=== PATIENT | female | born 1975 | race Caucasian/White ===

== ENCOUNTER → 2019-05-15 | Outpatient (CLI) | payer MEDICARE, MEDICAID ==
[~2019-05-15] MED LIST: ARIP2TAB3 PO; CARB200T PO; DULO60CA6 PO; SULF1TAB35 PO
--- NOTE | 2019-05-15 15:28 | Diagnostic Imaging Report ---
INDICATION: Numbness in the left femur. COMPARISON: None. FINDINGS: Four views of the left femur were obtained and show no fractures, dislocations, or other acute bony abnormalities. Joint spaces are well maintained throughout. The soft tissues appear unremarkable. No radiopaque foreign bodies are identified. IMPRESSION: Unremarkable radiographic exam of the left femur. Dictated by: Dictated on workstation # [id number]
--- NOTE | 2019-05-15 16:21 | Diagnostic Imaging Report ---
INDICATION: Pain. COMPARISON: None available. TECHNIQUE: Three radiographs of the lumbar spine dated May 15, 2019. FINDINGS: Partial sacralization of the L5 vertebral body is suggested based upon the radiographs of the lumbar spine. Alignment of the lumbar spine is well-maintained. Vertebral body heights are well-maintained. Mild disc space height loss at L4-L5. No severe disc space height loss. Minimal anterior osteophytes in the lower lumbar spine. No acute fracture or dislocation. No destructive osseous process. Scattered facet joint degenerative changes, low-grade in severity. The bilateral sacroiliac joints are intact. Surgical clips are present within the right upper quadrant of the abdomen. IMPRESSION: No acute osseous abnormality with minimal degenerative changes. Partial sacralization of the L5 vertebral body. Dictated by: Dictated on workstation # [id number]
== END ==
LOC: RAD 14:22
PROVIDERS: ATTEND Pediatrics
DX: M54.5 Low back pain (principal); M79.605 Pain in left leg; R20.0 Anesthesia of skin
CPT/HCPCS: 72100; 73552

== ENCOUNTER 2019-05-27 16:04 | Emergency (ER) | payer MEDICARE, MEDICAID ==
[~2019-05-27] VITALS: Ht 167 cm; Wt 83.8 kg
--- NOTE | 2019-05-27 16:43 | Diagnostic Imaging Report ---
Patient History: Chest pain. Palpitations for 3 days.. Technique: Single frontal view of the chest Comparison: 10/10/2015 FINDINGS: The lung volumes are normal. No focal consolidation is seen. No large pleural effusion or pneumothorax is seen. The cardiomediastinal silhouette is normal in size and contour. No acute osseous abnormality is seen. IMPRESSION: 1. No acute pleuroparenchymal process. Dictated by: Dictated on workstation # [id number]
[2019-05-27 17:22] LABS: BUN/CREATININE RATIO 16; CALCIUM 9.5 MG/DL (8.5-10.1); CARBON DIOXIDE 24 MMOL/L (21-32); CHLORIDE 99 MMOL/L (98-107); CREATININE SERUM 0.64 MG/DL (0.60-1.30); GFR ESTIMATED > 60; GLUCOSE 200 MG/DL (70-105); POTASSIUM 3.8 MMOL/L (3.6-5.0); SODIUM 138 MMOL/L (135-145)
[2019-05-27 17:23] LABS: ALANINE AMINOTRANSFERASE 71 U/L (0-55); ALBUMIN 4.5 GM/DL (3.2-4.5); ALKALINE PHOSPHATASE 128 U/L (40-136); BILIRUBIN,TOTAL 0.4 MG/DL (0.1-1.0); HEMATOCRIT 41 % (35-52); HEMOGLOBIN 13.7 G/DL (11.5-16.0); MEAN CORPUSCULAR HEMOGLOBIN 31 PG (25-34); MEAN CORPUSCULAR VOLUME 91 FL (80-99); TOTAL PROTEIN 7.5 GM/DL (6.4-8.2)
[2019-05-27 17:24] LABS: BASOPHILS % (AUTO) 0 % (0-10); EOSINOPHILS # (AUTO) 0.1 10^3/uL (0.0-0.3); EOSINOPHILS % (AUTO) 1 % (0-10); LYMPHOCYTES # (AUTO) 2.4 X 10^3 (1.0-4.0); LYMPHOCYTES % (AUTO) 34 % (12-44); MEAN CORPUSCULAR HGB CONC 34 G/DL (32-36); MEAN PLATELET VOLUME 10.7 FL (7.4-10.4); MONOCYTES # (AUTO) 0.4 X 10^3 (0.0-1.0); MONOCYTES % (AUTO) 5 % (0-12); NEUTROPHILS # (AUTO) 4.2 X 10^3 (1.8-7.8); NEUTROPHILS % (AUTO) 60 % (42-75); PLATELET COUNT 259 10^3/uL (130-400); RED CELL DISTRIBUTION WIDTH 12.5 % (10.0-14.5)
--- NOTE | 2019-05-27 17:27 | ED Cardiac General ---
History of Present Illness General Chief Complaint: Chest Pain Stated Complaint: CHEST PAIN Nursing Triage Note: Patient states has had intermittent chest pain x 4 days and palpitations for one week. Was nauseous yesterday and has been feeling sob and feels like she has to cough due to not getting enough breath. States she has been having anxiety as well. Has been out of cymbalta for 3 days and has been unable to have it refilled. Also recently started taking metformin and thinks one of her medicines is making her feel bad. Blood sugars normally run 200-300. Has history of diabetes, hypertension, and is a 1ppd smoker. Source: patient Exam Limitations: no limitations History of Present Illness Date Seen by Provider: May 27, 2019 Time Seen by Provider: 17:22 Initial Comments The patient is a 43-year-old white female who presents with chief complaint of intermittent chest pain and palpitations. This is been noted over the past week or thereabouts. This morning she had an episode of palpitations and her mother prevailed upon her to come to the emergency room. She has recently been diagnosed as having diabetes. She has been dieting and has lost 19 pounds. She was also started on metformin and was concerned that this might be causing a problem. 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 She smokes about one pack of cigarettes per day. Her mother has a history of atrial fibrillation. She also smoked and is being treated for COPD. Timing/Duration: 1 week Severity: mild, moderate Location: central Activities at Onset: none Prior CP/Workup: no prior chest pain, no prior cardiac workup Allergies and Home Medications Allergies Coded Allergies: podofilox (Verified Allergy, Unknown, 10/10/15) Home Medications Aripiprazole 2 Mg Tablet, 5 MG PO DAILY, (Reported) Carbamazepine 200 Mg Tablet, 300 MG PO TID, (Reported) Duloxetine HCl 60 Mg Capsule.dr, 60 MG PO BID, (Reported) Sulfamethoxazole/Trimethoprim 1 Each Tablet, 1 EACH PO BID Prescribed by: MATT DE LA ROSA on 10/10/151940 Patient Home Medication List Home Medication List Reviewed: Yes Review of Systems Review of Systems Constitutional: see HPI EENTM: No Symptoms Reported Respiratory: No Symptoms Reported Cardiovascular: See HPI, Palpitations Gastrointestinal: No Symptoms Reported Genitourinary: No Symptoms Reported Musculoskeletal: no symptoms reported Skin: no symptoms reported Psychiatric/Neurological: No Symptoms Reported Endocrine: See HPI Hematologic/Lymphatic: No Symptoms Reported Past Jzqhmno-Wufmoo-Dsotpq Hx Patient Social History Alcohol Use: Past History Recreational Drug Use: No Smoking Status: Current Everyday Smoker 2nd Hand Smoke Exposure: Yes Recent Foreign Travel: No Contact w/Someone Who Travel: No Recent Infectious Disease Expo: No Physical Abuse: No Sexual Abuse: No Mistreated: No Fear: No Immunizations Up To Date Tetanus Booster (TDap): Unknown Seasonal Allergies Seasonal Allergies: No Past Medical History Surgeries: Yes Abdominal, Breast, Gallbladder, Hysterectomy Respiratory: No Cardiac: Yes Hypertension, Irregular Heartbeat, Palpitations Neurological: No Reproductive Disorders: Yes Female Reproductive Disorders: Endometriosis Genitourinary: No Gastrointestinal: No Musculoskeletal: No Endocrine: Yes Hypothyroidsim, Diabetes, Non-Insulin dep Cancer: No Psychosocial: Yes Anxiety, Bipolar Integumentary: No Blood Disorders: No Physical Exam Vital Signs Vital Signs - First Documented 05/27/19 16:06 Temp 37.0 Pulse 100 Resp 15 B/P (MAP) 140/83 (102) Pulse Ox 98 Capillary Refill : Less Than 3 Seconds Height, Weight, BMI Height: 5'6" Weight: 170lbs. oz. 77.512015ks; 30.00 BMI Method: General Appearance: No Apparent Distress, WD/WN, Other (alert and engaging) HEENT: Normal ENT Inspection Neck: Full Range of Motion, Normal Inspection, Non Tender Respiratory: Chest Non Tender, Lungs Clear, Normal Breath Sounds, No Accessory Muscle Use, No Respiratory Distress Cardiovascular: Regular Rate, Rhythm, No Edema, No Gallop, No JVD, No Murmur, Normal Peripheral Pulses Gastrointestinal: Normal Bowel Sounds, No Organomegaly, No Pulsatile Mass, Non Tender Extremity: Normal Capillary Refill, Normal Inspection, Normal Range of Motion, Non Tender, No Calf Tenderness, No Pedal Edema Neurologic/Psychiatric: Alert, Oriented x3, No Motor/Sensory Deficits, Normal Mood/Affect Skin: Normal Color, Warm/Dry Lymphatic: No Adenopathy Progress/Results/Core Measures Results/Orders Lab Results Laboratory Tests Test 05/27/19 16:30 Range/Units White Blood Count 7.0 4.3-11.0 10^3/uL Red Blood Count 4.48 4.35-5.85 10^6/uL Hemoglobin 13.7 11.5-16.0 G/DL Hematocrit 41 35-52 % Mean Corpuscular Volume 91 80-99 FL Mean Corpuscular Hemoglobin 31 25-34 PG Mean Corpuscular Hemoglobin Concent 34 32-36 G/DL Red Cell Distribution Width 12.5 10.0-14.5 % Platelet Count 259 130-400 10^3/uL Mean Platelet Volume 10.7 H 7.4-10.4 FL Neutrophils (%) (Auto) 60 42-75 % Lymphocytes (%) (Auto) 34 12-44 % Monocytes (%) (Auto) 5 0-12 % Eosinophils (%) (Auto) 1 0-10 % Basophils (%) (Auto) 0 0-10 % Neutrophils # (Auto) 4.2 1.8-7.8 X 10^3 Lymphocytes # (Auto) 2.4 1.0-4.0 X 10^3 Monocytes # (Auto) 0.4 0.0-1.0 X 10^3 Eosinophils # (Auto) 0.1 0.0-0.3 10^3/uL Basophils # (Auto) 0.0 0.0-0.1 10^3/uL Sodium Level 138 135-145 MMOL/L Potassium Level 3.8 3.6-5.0 MMOL/L Chloride Level 99 98-107 MMOL/L Carbon Dioxide Level 24 21-32 MMOL/L Anion Gap 15 H 5-14 MMOL/L Blood Urea Nitrogen 10 7-18 MG/DL Creatinine 0.64 0.60-1.30 MG/DL Estimat Glomerular Filtration Rate > 60 BUN/Creatinine Ratio 16 Glucose Level 200 H 70-105 MG/DL Calcium Level 9.5 8.5-10.1 MG/DL Corrected Calcium 9.1 8.5-10.1 MG/DL Total Bilirubin 0.4 0.1-1.0 MG/DL Aspartate Amino Transf (AST/SGOT) 65 H 5-34 U/L Alanine Aminotransferase (ALT/SGPT) 71 H 0-55 U/L Alkaline Phosphatase 128 40-136 U/L Troponin I < 0.30 <0.30 NG/ML Total Protein 7.5 6.4-8.2 GM/DL Albumin 4.5 3.2-4.5 GM/DL My Orders Orders - BARBARA GARCIA MD Chest 1 View Ap/Pa Only (05/27/19 16:10) Ekg Tracing (05/27/19 16:10) Cbc With Automated Diff (05/27/19 16:10) Comprehensive Metabolic Panel (05/27/19 16:10) Troponin I Fs (05/27/19 16:54) Vital Signs/I&O 05/27/19 16:06 Temp 37.0 Pulse 100 Resp 15 B/P (MAP) 140/83 (102) Pulse Ox 98 Blood Pressure Mean: 102 Departure Communication (Admissions) Troponin and EKG were negative. By history is given by the patient this suggests paroxysmal atrial fibrillation or intermittent PVCs. They are advised if this is to continue that they should make a cardiology appointment for consideration of a longer term cardiac monitoring. It is also noted that her ALT and AST are approximately double normal. She states that she had a normal hepatitis C study in 2017. This would raise the specter of RODRÍGUEZ. She is advised to follow this along during her weight loss program. Impression Primary Impression: palpitations Disposition: HOME, SELF-CARE Condition: Stable/Unchanged Departure-Patient Inst. Decision time for Depature: 17:40 Referrals: ANNEL BLEVINS MD (PCP/Family) Primary Care Physician Add. Discharge Instructions: All discharge instructions reviewed with patient and/or family. Voiced understanding. If continued sense of palpitations make cardiology appointment for consideration of outpatient monitoring of heartbeat BARBARA GARCIA MD May 27, 2019 17:27
[2019-05-27 17:53] VITALS: BP 130/77
== END 2019-05-27 17:55 | disposition home or self-care (01) ==
LOC: EDUNIT# 16:04 → ER FS 16:05
DX: R00.2 Palpitations (principal); E11.9 Type 2 diabetes mellitus without complications; I10 Essential (primary) hypertension; F41.9 Anxiety disorder, unspecified; E03.9 Hypothyroidism, unspecified; F31.9 Bipolar disorder, unspecified; F17.210 Nicotine dependence, cigarettes, uncomplicated; Z79.84 Long term (current) use of oral hypoglycemic drugs; Z88.8 Allergy status to other drugs, medicaments and biological substances; Z90.710 Acquired absence of both cervix and uterus; Z82.49 Family history of ischemic heart disease and other diseases of the circulatory system
CPT/HCPCS: 36415; 71045; 80053; 84484; 85025; 93005

== ENCOUNTER → 2019-06-06 | Outpatient (CLI) | payer MEDICARE, MEDICAID ==
--- NOTE | 2019-06-06 10:54 | Diagnostic Imaging Report ---
EXAMINATION: US Abdomen complete. TECHNIQUE: Multiple real-time grayscale images were obtained over the right upper quadrant in various projections. HISTORY: Elevated liver enzymes FINDINGS: No comparison available. The liver is moderately steatotic. It is also mildly enlarged. No focal lesions are seen. The portal vein is patent with hepatopedal flow. Gallbladder is surgically absent Common duct is obscured by bowel gas. There is no biliary ductal dilation. The visualized portions of the pancreas are normal. The right kidney is normal without hydronephrosis. The left kidney is normal without hydronephrosis. The aorta and inferior vena cava are normal. The spleen is normal. No ascites is seen. IMPRESSION: 1. Enlarged and steatotic liver. Dictated by: Dictated on workstation # [id number]
== END ==
LOC: RAD 09:24
PROVIDERS: ATTEND Pediatrics
DX: K76.0 Fatty (change of) liver, not elsewhere classified (principal); R74.8 Abnormal levels of other serum enzymes; K76.89 Other specified diseases of liver
CPT/HCPCS: 76700

== ENCOUNTER 2020-02-29 11:17 | Emergency (ER) | payer MEDICARE, MEDICAID ==
[~2020-02-29] VITALS: Ht 170.2 cm; Wt 84.4 kg
--- NOTE | 2020-02-29 11:21 | ED Integumentary General ---
General Chief Complaint: Skin/Wound Problems Stated Complaint: LT FOOT INFECTION Source: patient History of Present Illness Date Seen by Provider: Feb 29, 2020 Time Seen by Provider: 11:21 Initial Comments 44-year-old female presents with a small abscess on her left great toe. Patient reports that about a week ago she dropped a cold trailer on it. Her primary care provider put her in a walking boot because she is diabetic and doesn't want walking on it. She developed a small superficial skin infection with a small abscess. She is currently already on Levaquin and has 3 days left. She denies any fevers chills or other systemic complaints. Patient had a previous x-ray that shows is not broken. Allergies and Home Medications Allergies Coded Allergies: podofilox (Verified Allergy, Unknown, 10/10/15) Home Medications Aripiprazole 2 Mg Tablet, 5 MG PO DAILY, (Reported) Carbamazepine 200 Mg Tablet, 300 MG PO TID, (Reported) Duloxetine HCl 60 Mg Capsule.dr, 60 MG PO BID, (Reported) Sulfamethoxazole/Trimethoprim 1 Each Tablet, 1 EACH PO BID Prescribed by: MATT DE LA ROSA on 10/10/151940 Patient Home Medication List Home Medication List Reviewed: Yes Review of Systems Review of Systems Constitutional: No chills, No fever EENTM: no symptoms reported Respiratory: no symptoms reported Cardiovascular: no symptoms reported Gastrointestinal: no symptoms reported Skin: see HPI Psychiatric/Neurological: No Symptoms Reported Endocrine: No Symptoms Reported Past Uuxvday-Lusmmt-Ufdzpr Hx Past Med/Social Hx: Reviewed Nursing Past Med/Soc Hx Patient Social History 2nd Hand Smoke Exposure: Yes Recent Foreign Travel: No Contact w/Someone Who Travel: No Immunizations Up To Date Tetanus Booster (TDap): Unknown Seasonal Allergies Seasonal Allergies: No Past Medical History Surgeries: Yes Abdominal, Breast, Gallbladder, Hysterectomy Respiratory: No Cardiac: Yes Hypertension, Irregular Heartbeat, Palpitations Neurological: No Reproductive Disorders: Yes Female Reproductive Disorders: Endometriosis Genitourinary: No Gastrointestinal: No Musculoskeletal: No Endocrine: Yes Hypothyroidsim, Diabetes, Non-Insulin dep Cancer: No Psychosocial: Yes Anxiety, Bipolar Integumentary: No Blood Disorders: No Physical Exam Vital Signs Capillary Refill : General Appearance: WD/WN, no apparent distress Cardiovascular: normal peripheral pulses, regular rate, rhythm Respiratory: chest non-tender, lungs clear Gastrointestinal: soft Extremities: swelling (left great toe ) Skin: other (small perionchyl abscess left great toe ) Procedures/Interventions I&D : Blade Size: 11 Progress Patient's toe clean with an alcohol swab prep and water. An 11 blade was used put in a very small incision. Abscess completely drain with no difficulty. Patient tolerated well per Departure Impression Primary Impression: Perionychia of toe Qualified Codes: L03.032 - Cellulitis of left toe Disposition: HOME, SELF-CARE Condition: Stable Departure-Patient Inst. Referrals: ANNEL BLEVINS MD (PCP/Family) Primary Care Physician Patient Instructions: Paronychia (DC), Abscess Incision and Drainage (DC), Methicillin-Resistant Staphylococcus aureus (MRSA) Add. Discharge Instructions: Follow-up with your primary care provider next week for recheck All discharge instructions reviewed with patient and/or family. Voiced understanding. Scripts Ibuprofen (Ibuprofen) 800 Mg Tablet 800 MG PO Q8H PRN for PAIN, #30 TAB 0 Refills Prov: DAVID SANTACRUZ DO 02/29/20 DAVID SANTACRUZ DO Feb 29, 2020 11:21
[2020-02-29] MEDS ORDERED: IBUP-1780 PO (11:36)
[2020-02-29 11:45] VITALS: BP 158/96
== END 2020-02-29 11:45 | disposition home or self-care (01) ==
LOC: EDUNIT# 11:17 → ER FS 11:18
DX: L03.032 Cellulitis of left toe (principal); F41.9 Anxiety disorder, unspecified; F31.9 Bipolar disorder, unspecified; Z88.8 Allergy status to other drugs, medicaments and biological substances
CPT/HCPCS: 10060; 87070; 87077; 87205

== ENCOUNTER 2020-03-03 12:18 | Emergency (ER) | payer MEDICARE, MEDICAID ==
[~2020-03-03 12:18] MED LIST changes: +IBUP-1780 PO
[2020-03-03] MEDS ORDERED: PROCHLORPERAZINE 10 MG TAB (COMPAZINE) PO ONE (13:00)
[2020-03-03] MEDS ORDERED: oxyCODONE/APAP 5/325MG (PERCOCET 5) TABLET PO ONE (13:00)
--- NOTE | 2020-03-03 13:33 | Diagnostic Imaging Report ---
INDICATION: Cough and fever. Portable chest 1:18 PM FINDINGS: Heart size and pulmonary vascularity are normal. Lungs are clear. There are no effusions or pneumothoraces. IMPRESSION: Negative chest. Dictated by: Dictated on workstation # [id number]
--- NOTE | 2020-03-03 13:43 | ED General ---
General Chief Complaint: Fever-Adult/Adol Stated Complaint: FEVER Nursing Triage Note: Tuesday morning started having fevers and headaches. Temp has been low 100's. Is also having nausea and fatigue. Had a wound on left foot lanced on Tuesday. has been on antibiotics and states toe is much better. Denies any sick contacts or changes in smell or taste. Nursing Sepsis Screen: No Definite Risk Source of Information: Patient History of Present Illness Date Seen by Provider: Mar 03, 2020 Time Seen by Provider: 12:30 Initial Comments Patient is a 44-year-old female who presents with multiple medical complaints. Patient was evaluated 3 days ago had an I&D of right great toe. Patient has completed a course of antibiotics but reports intermittent fever for the initial 2 days but no fever for the past 24 hours. She reports headache dizziness and nausea. She states her blood sugars been elevated in the low 300 range. Patient is a ypl-nxvkdrs-awrtboecr diabetic. Typically blood sugars are less than 200. Patient denies neck pain, stiffness, rash, chest pain. Reports occasional cough and nausea. No known COVID exposure. Timing/Duration: 1-3 Hours Severity: Mild Modifying Factors: improves with Other Associated Systoms: Other Allergies and Home Medications Allergies Coded Allergies: podofilox (Verified Allergy, Unknown, 10/10/15) Home Medications Aripiprazole 2 Mg Tablet, 5 MG PO DAILY, (Reported) Carbamazepine 200 Mg Tablet, 300 MG PO TID, (Reported) Duloxetine HCl 60 Mg Capsule.dr, 60 MG PO BID, (Reported) Ibuprofen 800 Mg Tablet, 800 MG PO Q8H PRN for PAIN Prescribed by: DAVID SANTACRUZ on 02/29/20 1136 Sulfamethoxazole/Trimethoprim 1 Each Tablet, 1 EACH PO BID Prescribed by: MATT DE LA ROSA on 10/10/15 194 Patient Home Medication List Home Medication List Reviewed: Yes Review of Systems Review of Systems Constitutional: see HPI EENTM: see HPI Respiratory: see HPI Cardiovascular: see HPI Gastrointestinal: see HPI Genitourinary: see HPI : No Musculoskeletal: see HPI Skin: see HPI Psychiatric/Neurological: See HPI Hematologic/Lymphatic: See HPI Past Ooumzki-Yvftdx-Xoufrd Hx Past Med/Social Hx: Reviewed Nursing Past Med/Soc Hx Patient Social History Alcohol Use: Denies Use Recreational Drug Use: No Smoking Status: Current Everyday Smoker Type Used: Cigarettes 2nd Hand Smoke Exposure: Yes Recent Foreign Travel: No Contact w/Someone Who Travel: No Recent Infectious Disease Expo: No Recent Hopitalizations: No Immunizations Up To Date Tetanus Booster (TDap): Unknown Seasonal Allergies Seasonal Allergies: No Past Medical History Surgeries: Yes Abdominal, Breast, Gallbladder, Hysterectomy Respiratory: No Cardiac: Yes Hypertension, Irregular Heartbeat, Palpitations Neurological: No Reproductive Disorders: Yes Female Reproductive Disorders: Endometriosis Genitourinary: No Gastrointestinal: No Musculoskeletal: No Endocrine: Yes Hypothyroidsim, Diabetes, Non-Insulin dep HEENT: No Cancer: No Psychosocial: Yes Anxiety, Bipolar Integumentary: No Blood Disorders: No Physical Exam Vital Signs Vital Signs - First Documented 03/03/20 12:45 Temp 36.5 Pulse 88 Resp 16 B/P (MAP) 126/85 (99) Pulse Ox 98 Capillary Refill : Less Than 3 Seconds Height, Weight, BMI Height: 5'6" Weight: 170lbs. oz. [id number]; 29.00 BMI Method: General Appearance: No Apparent Distress, Anxious Eyes: Bilateral Eye Normal Inspection, Bilateral Eye PERRL, Bilateral Eye EOMI HEENT: PERRL/EOMI, Normal ENT Inspection, Pharynx Normal Neck: Full Range of Motion, Non Tender, Supple Respiratory: Chest Non Tender, Lungs Clear Cardiovascular: Regular Rate, Rhythm Gastrointestinal: Non Tender, Soft Back: Normal Inspection, No CVA Tenderness Extremity: Normal Capillary Refill, Normal Range of Motion, Non Tender, No Calf Tenderness Neurologic/Psychiatric: Alert, Oriented x3, wrecking mechanic II-XII Norm as Tested, Other (right great toe, healing abscess/surgical wound. No cellulitis or drainage.) Skin: Normal Color, Warm/Dry Focused Exam Sepsis Stage: Ruled Out Progress/Results/Core Measures Suspected Sepsis Recent Fever Within 48 Hours: Yes Infection Criteria Present: Documented Infection New/Unexplained Altered Menta: No Sepsis Screen: No Definite Risk SIRS Temperature: Pulse: 88 Respiratory Rate: 16 Blood Pressure 126 /85 Mean: 99 Results/Orders Lab Results Laboratory Tests Test 03/03/20 13:30 03/03/20 13:35 Range/Units Glucose Level 208 H 70-105 MG/DL My Orders Orders - PITA CALDERON DO Glucose (03/03/20 12:58) Chest 1 View Ap/Pa Only (03/03/20 12:58) Ekg Tracing (03/03/20 12:58) Coronavirus Sars-Cov-2 So 2019 (03/03/20 12:58) Oxycodone/Apap 5/325mg Tablet (Percocet (03/03/20 13:00) Prochlorperazine Tablet (Compazine Table (03/03/20 13:00) Medications Given in ED Current Medications Medications Dose Ordered Sig/Lisy Route Start Time Stop Time Status Last Admin Dose Admin Oxycodone/ Acetaminophen 1 tab ONCE ONCE PO 03/03/20 13:00 03/03/20 13:02 DC 03/03/20 13:16 1 TAB Prochlorperazine Maleate 10 mg ONCE ONCE PO 03/03/20 13:00 03/03/20 13:02 DC 03/03/20 13:16 10 MG Vital Signs/I&O 03/03/20 12:45 Temp 36.5 Pulse 88 Resp 16 B/P (MAP) 126/85 (99) Pulse Ox 98 Capillary Refill : Less Than 3 Seconds Blood Pressure Mean: 99 Departure Communication (Admissions) Patient with multiple medical symptoms. Headache is not the worst patient's life. No neck pain stiffness or rash. Recent antibiotic treatment. Chest, lungs clear. Surgical wound/abscess does not appear to be likely cause of symptoms. COVID testing obtained. Recommend supportive care, PCP follow-up in cell quarantine pending results. Return precautions reviewed. Patient verbalizes und erstanding draining prior to departure. Impression Primary Impression: Headache Additional Impression: Fever Disposition: 01 HOME, SELF-CARE Condition: Stable Departure-Patient Inst. Referrals: ANNEL BLEVINS MD (PCP/Family) Primary Care Physician Patient Instructions: Fever, Adult (DC), Headache, Adult Add. Discharge Instructions: You were evaluated in the emergency department for multiple medical symptoms including headache nausea and recent fever. The cause of your symptoms cannot be determined but may be related viral illness. COVID testing has been obtained and is pending. Please go home and rest, increase fluids or the next 2-3 days. Take naproxen for pain, tramadol and Compazine as needed for additional relief. Follow up with your PCP in one for re-evaluation if symptoms persist. Return to the ED if new or worsening symptoms All discharge instructions reviewed with patient and/or family. Voiced understanding. Scripts Prochlorperazine Maleate (Compazine) 10 Mg Tablet 10 MG PO Q8H, #10 TAB Prov: PITA CALDERON DO 03/03/20 Tramadol HCl (Tramadol HCl) 50 Mg Tablet 50 MG PO Q6H PRN for PAIN for 3 Days, #10 TAB 0 Refills Prov: PITA CALDERON DO 03/03/20 PITA CALDERON DO Mar 03, 2020 13:43
[2020-03-03] MEDS ORDERED: TRM50T PO (14:54)
[2020-03-03] MEDS ORDERED: PROC-1 PO (14:54)
[2020-03-03 15:09] VITALS: BP 126/60
== END 2020-03-03 15:10 | disposition home or self-care (01) ==
LOC: EDUNIT# 12:18 → ER FS 12:20
DX: R51 Headache (principal); R50.9 Fever, unspecified; E11.9 Type 2 diabetes mellitus without complications; F41.9 Anxiety disorder, unspecified; F32.9 Major depressive disorder, single episode, unspecified; F17.210 Nicotine dependence, cigarettes, uncomplicated; Z88.8 Allergy status to other drugs, medicaments and biological substances; Z90.710 Acquired absence of both cervix and uterus
CPT/HCPCS: 36415; 71045; 82947; U0002; 87635; 93005

== ENCOUNTER → 2021-11-03 | Outpatient (CLI) | payer MEDICARE ==
[~2021-11-03] MED LIST changes: -DULO60CA6 PO; +DULO60CA7 PO; +PROC-1 PO; -SULF1TAB35 PO; +SULF1TAB38 PO; +TRM50T PO
--- NOTE | 2021-11-03 11:20 | Diagnostic Imaging Report ---
PA and lateral chest at 10:36. INDICATION: Respiratory distress COMPARISON: Date 03/03/2020. FINDINGS: The heart size is stable when compared to the prior exam. The lungs are clear. There is no evidence for failure, pneumonia or for a pleural effusion. The mediastinum is not widened. The osseous structures are intact. IMPRESSION: There is no evidence for active disease. Dictated by: Dictated on workstation # [id number]
== END ==
LOC: RAD FS 10:28
PROVIDERS: ATTEND Pediatrics
DX: R09.89 Other specified symptoms and signs involving the circulatory and respiratory systems (principal); R06.03 Acute respiratory distress
CPT/HCPCS: 71046

== ENCOUNTER 2022-08-22 22:17 | Emergency (ER) | payer MEDICARE ==
[~2022-08-22] VITALS: Ht 170.1 cm; Wt 81.8 kg
[2022-08-22] MEDS ORDERED: ORPHENADRINE 60 MG/2 ML (NORFLEX) AMP (ED ONLY) IVP STA (22:31)
[2022-08-22] MEDS ORDERED: NS IV 1000 ML 1,000 ML IV STA (22:31)
[2022-08-22] MEDS ORDERED: KETOROLAC 15 MG/ML VIAL IVP STA (22:31)
--- NOTE | 2022-08-22 22:36 | ED General ---
General Stated Complaint: MUSCLE SPASMS/TROUBLE WALKING Source of Information: Patient History of Present Illness Date Seen by Provider: Aug 22, 2022 Time Seen by Provider: 22:24 Initial Comments 46-year-old female presenting with complaints of muscle spasms in her forearms and calves. She states that this is been present all day and getting worse. She denies any trauma or injury. She has not had symptoms like this previously. She denies having vomiting or diarrhea. No fever or chills. She was trying to do hhlv-ybd-apwrvgc patches to help with her spasm and pain. She takes multiple psychiatric medicines for bipolar disease. Timing/Duration: 1 Day Severity: Severe Modifying Factors: worse with Movement Associated Systoms: No Chest Pain, No Cough, No Diaphoresis, No Fever/Chills, No Headaches, No Loss of Appetite, No Malaise, No Nausea/Vomiting, No Rash, No Seizure, No Shortness of Air, No Syncope, No Weakness Allergies and Home Medications Allergies Coded Allergies: podofilox (Verified Allergy, Unknown, 10/10/15) Patient Home Medication List Home Medication List Reviewed: Yes Carbamazepine (Tegretol) 200 Mg Tablet, 300 MG PO TID, (Reported) Entered as Reported by: RAZ CORDON on 10/10/151841 Last Action: Reviewed Cariprazine Hydrochloride (Vraylar) 4.5 Mg Capsule, 4.5 MG PO DAILY, (Reported) Entered as Reported by: VERN LI on 08/22/222355 Last Action: New Order Cyclobenzaprine HCl (Cyclobenzaprine HCl) 10 Mg Tablet, 10 MG PO BID PRN for MUSCLE SPASMS Prescribed by: POLINA WINSLOW on 08/23/226 Duloxetine HCl (Cymbalta) 60 Mg Capsule.dr, 60 MG PO BID, (Reported) Entered as Reported by: RAZ CORDON on 10/10/151841 Last Action: Reviewed Gabapentin (Gabapentin) 600 Mg Tablet, 600 MG PO TID, (Reported) Entered as Reported by: VERN LI on 08/22/222355 Last Action: New Order Ipratropium [place] (Atrovent Hfa) 17 Mcg/Actuation Aers, (Reported) Entered as Reported by: VERN LI on 08/22/222355 Last Action: New Order Levothyroxine Sodium (Levothyroxine Sodium) 25 Mcg Tablet, 25 MCG PO DAILY, (Reported) Entered as Reported by: VERN LI on 08/22/222355 Last Action: New Order Metformin HCl (Metformin HCl) 500 Mg Tablet, 500 MG PO BID Prescribed by: POLINA WINSLOW on 08/23/226 Naloxegol Oxalate (Movantik) 25 Mg Tablet, 25 MG PO DAILY, (Reported) Entered as Reported by: VERN LI on 08/22/222355 Last Action: New Order Discontinued Medications Aripiprazole (Abilify) 2 Mg Tablet, 5 MG PO DAILY, (Reported) Discontinued Reason: Referral/FU Appt-Addtl Entered as Reported by: RAZ CORDON on 10/10/15 184 Last Action: Discontinued Ibuprofen (Ibuprofen) 800 Mg Tablet, 800 MG PO Q8H PRN for PAIN Discontinued Reason: Referral/FU Appt-Addtl Prescribed by: DAVID SANTACRUZ on 02/29/20 1136 Last Action: Discontinued Prochlorperazine Maleate (Compazine) 10 Mg Tablet, 10 MG PO Q8H Discontinued Reason: Referral/FU Appt-Addtl Prescribed by: PITA CALDERON on 03/03/201453 Last Action: Discontinued Sulfamethoxazole/Trimethoprim (Bactrim Ds Tablet) 1 Each Tablet, 1 EACH PO BID Discontinued Reason: Referral/FU Appt-Addtl Prescribed by: MATT DE LA ROSA on 10/10/151940 Last Action: Discontinued Tramadol HCl (Tramadol HCl) 50 Mg Tablet, 50 MG PO Q6H PRN for PAIN Discontinued Reason: Referral/FU Appt-Addtl Prescribed by: PITA CALDERON on 03/03/20 145 Last Action: Discontinued Review of Systems Review of Systems Constitutional: No chills, No fever EENTM: no symptoms reported Respiratory: no symptoms reported Cardiovascular: no symptoms reported Gastrointestinal: see HPI Genitourinary: No dysuria Musculoskeletal: see HPI, muscle cramps (bilateral forearms and calf area) Skin: No change in color, No rash Psychiatric/Neurological: Denies Headache Past Udvhyrh-Cckkne-Risndu Hx Patient Social History Tobacco Use?: Yes Tobacco type used: Cigarettes Immunizations Up To Date Tetanus Booster (TDap): Unknown Seasonal Allergies Seasonal Allergies: No Past Medical History Surgeries: Yes Abdominal, Breast, Gallbladder, Hysterectomy Respiratory: No Cardiac: Yes Hypertension, Irregular Heartbeat, Palpitations Neurological: No Reproductive Disorders: Yes Female Reproductive Disorders: Endometriosis Genitourinary: No Gastrointestinal: No Musculoskeletal: No Endocrine: Yes Hypothyroidsim, Diabetes, Non-Insulin dep HEENT: No Cancer: No Psychosocial: Yes Anxiety, Bipolar Integumentary: No Blood Disorders: No Physical Exam Vital Signs Vital Signs - First Documented 08/22/22 22:20 Temp 36.8 Pulse 109 Resp 22 B/P (MAP) 159/106 (123) Pulse Ox 97 O2 Delivery Room Air Capillary Refill : Height, Weight, BMI Height: 5'6" Weight: 170lbs. oz. [id number]; 29.00 BMI Method: General Appearance: WD/WN, Anxious, Mild Distress Neck: Full Range of Motion, Normal Inspection, Non Tender, Supple Respiratory: Chest Non Tender, Lungs Clear, Normal Breath Sounds, No Accessory Muscle Use, No Respiratory Distress Cardiovascular: Regular Rate, Rhythm, Normal Peripheral Pulses Rectal: Deferred Back: No CVA Tenderness, No Vertebral Tenderness Extremity: Normal Capillary Refill, Normal Inspection, Normal Range of Motion, No Pedal Edema, Calf Tenderness (tightness of muscles and tender to palpation over bilateral calf muscles and bilateral forearms) Neurologic/Psychiatric: Alert, Oriented x3, performance improvement specialist II-XII Norm as Tested Skin: Normal Color, Warm/Dry; No Ecchymosis, No Erythema Progress/Results/Core Measures Suspected Sepsis SIRS Temperature: Pulse: Respiratory Rate: Laboratory Tests 08/22/22 23:05: White Blood Count 9.5 Blood Pressure / Mean: Laboratory Tests 08/22/22 23:05: Creatinine 0.50L, Platelet Count 202, Total Bilirubin 0.2 Results/Orders Lab Results Laboratory Tests Test 08/22/22 22:33 08/22/22 23:05 Range/Units Urine Color YELLOW Urine Clarity CLEAR Urine pH 5.0 5-9 Urine Specific [place] 1.015 L 1.016-1.022 Urine Protein NEGATIVE NEGATIVE Urine Glucose (UA) 3+ H NEGATIVE Urine Ketones NEGATIVE NEGATIVE Urine Nitrite NEGATIVE NEGATIVE Urine Bilirubin NEGATIVE NEGATIVE Urine Urobilinogen 0.2 < = 1.0 MG/DL Urine Leukocyte Esterase NEGATIVE NEGATIVE Urine RBC (Auto) NEGATIVE NEGATIVE Urine RBC 5-10 H /HPF Urine WBC 2-5 /HPF Urine Squamous Epithelial Cells 5-10 /HPF Urine Crystals NONE /LPF Urine Bacteria TRACE /HPF Urine Casts NONE /LPF Urine Mucus NEGATIVE /LPF Urine Culture Indicated NO White Blood Count 9.5 4.3-11.0 10^3/uL Red Blood Count 4.72 3.80-5.11 10^6/uL Hemoglobin 14.2 11.5-16.0 g/dL Hematocrit 41 35-52 % Mean Corpuscular Volume 86 80-99 fL Mean Corpuscular Hemoglobin 30 25-34 pg Mean Corpuscular Hemoglobin Concent 35 32-36 g/dL Red Cell Distribution Width 12.7 10.0-14.5 % Platelet Count 202 130-400 10^3/uL Mean Platelet Volume 10.0 9.0-12.2 fL Immature Granulocyte % (Auto) 0 % Neutrophils (%) (Auto) 64 42-75 % Lymphocytes (%) (Auto) 28 12-44 % Monocytes (%) (Auto) 6 0-12 % Eosinophils (%) (Auto) 2 0-10 % Basophils (%) (Auto) 1 0-10 % Neutrophils # (Auto) 6.0 1.8-7.8 10^3/uL Lymphocytes # (Auto) 2.7 1.0-4.0 10^3/uL Monocytes # (Auto) 0.5 0.0-1.0 10^3/uL Eosinophils # (Auto) 0.2 0.0-0.3 10^3/uL Basophils # (Auto) 0.1 0.0-0.1 10^3/uL Immature Granulocyte # (Auto) 0.0 0.0-0.1 10^3/uL Sodium Level 134 L 135-145 MMOL/L Potassium Level 4.1 3.6-5.0 MMOL/L Chloride Level 100 98-107 MMOL/L Carbon Dioxide Level 23 21-32 MMOL/L Anion Gap 11 5-14 MMOL/L Blood Urea Nitrogen 9 7-18 MG/DL Creatinine 0.50 L 0.60-1.30 MG/DL Estimat Glomerular Filtration Rate 116 BUN/Creatinine Ratio 18 Glucose Level 270 H 70-105 MG/DL Calcium Level 8.4 L 8.5-10.1 MG/DL Corrected Calcium 8.2 L 8.5-10.1 MG/DL Magnesium Level 1.9 1.6-2.4 MG/DL Total Bilirubin 0.2 0.1-1.0 MG/DL Aspartate Amino Transf (AST/SGOT) 7 5-34 U/L Alanine Aminotransferase (ALT/SGPT) 10 0-55 U/L Alkaline Phosphatase 167 H 40-136 U/L Total Protein 7.0 6.4-8.2 GM/DL Albumin 4.3 3.2-4.5 GM/DL My Orders Orders - POLINA WINSLOW MD Comprehensive Metabolic Panel (08/22/22 22:30) Ua Culture If Indicated (08/22/22 22:30) Ed Iv/Invasive Line Start (08/22/22 22:30) Cbc With Automated Diff (08/22/22 22:30) Magnesium (08/22/22 22:30) Ketorolac Injection (Toradol Injection) (08/22/22 22:52) Orphenadrine Inj (Ed Only) (Norflex Inje (08/22/22 22:52) Vital Signs/I&O 08/22/22 08/23/22 22:20 00:10 Temp 36.8 36.8 Pulse 109 100 Resp 22 20 B/P (MAP) 159/106 (123) 136/105 Pulse Ox 97 96 O2 Delivery Room Air Room Air Capillary Refill : Progress Note #1: Progress Note Check basic labs and urinalysis. Give normal saline 1 L IV fluid bolus to help with hydration and Toradol for pain with Norflex for muscle spasms. Progress Note #2: Progress Note Unable to obtain IV access so changed orders to IM for medicine, cancel IVF, have patient drink water. Progress Note #3: Progress Note Labs shows no acute significant abnormality on her CBC. She was not having anemia or high white blood cell count. Her urinalysis did have 3+ glucose but no signs of infection. The chemistry panel showed elevated glucose of 270. She had calcium at the lower limit of normal. Magnesium was normal at 1.9. Renal function and general electrolytes otherwise were stable. We will review with patient that she likely needs additional treatment for her diabetes so could restart metformin and in the meantime stay well-hydrated. Can continue with muscle relaxer for home and have her check with Dr. Blevins about management of her diabetes. Departure Impression Primary Impression: Muscle spasms of both lower extremities Additional Impressions: Muscle strain of left forearm Qualified Codes: S56.912A - Strain of unspecified muscles, fascia and tendons at forearm level, left arm, initial encounter Muscle strain of right forearm Qualified Codes: S56.911A - Strain of unspecified muscles, fascia and tendons at forearm level, right arm, initial encounter Poorly controlled type 2 diabetes mellitus Disposition: 01 HOME, SELF-CARE Condition: Stable Departure-Patient Inst. Decision time for Depature: 23:51 Referrals: ANNEL BLEVINS MD (PCP/Family) Primary Care Physician Patient Instructions: High Blood Sugar, Adult ED, Muscle Spasm ED, Muscle Strain ED, Diabetes and Diet Add. Discharge Instructions: Try to watch your diet more closely as you have elevated glucose tonight. Start taking the Metformin for Diabetes to help improve your sugar control. Check back with Dr. Blevins for continued management of your diabetes and elevated glucose with muscle spasms and pain. Scripts Cyclobenzaprine HCl (Cyclobenzaprine HCl) 10 Mg Tablet 10 MG PO BID PRN for MUSCLE SPASMS for 7 Days, #14 TAB 0 Refills Prov: POLINA WINSLOW MD 08/23/22 Metformin HCl (Metformin HCl) 500 Mg Tablet 500 MG PO BID for diabetes mellitus type 2 for 30 Days, #60 TAB 0 Refills Prov: POLINA WINSLOW MD 08/23/22 POLINA WINSLOW MD Aug 22, 2022 22:36
[2022-08-22 22:39] LABS: BILIRUBIN,URINE NEGATIVE (NEGATIVE); CLARITY,URINE CLEAR; COLOR,URINE YELLOW; GLUCOSE, URINE (UA) 3+ (NEGATIVE); KETONES,URINE NEGATIVE (NEGATIVE); LEUKOCYTE ESTERASE ,URINE NEGATIVE (NEGATIVE); NITRITE,URINE NEGATIVE (NEGATIVE); PROTEIN,URINE NEGATIVE (NEGATIVE)
[2022-08-22] MEDS ORDERED: KETOROLAC 30 MG/ML VIAL IM STA (22:52)
[2022-08-22] MEDS ORDERED: ORPHENADRINE 60 MG/2 ML (NORFLEX) AMP (ED ONLY) IM STA (22:52)
[2022-08-22 22:58] LABS: BACTERIA,URINE TRACE /HPF
[2022-08-22 23:17] LABS: BASOPHILS # (AUTO) 0.1 10^3/uL (0.0-0.1); BASOPHILS % (AUTO) 1 % (0-10); EOSINOPHILS # (AUTO) 0.2 10^3/uL (0.0-0.3); EOSINOPHILS % (AUTO) 2 % (0-10); HEMATOCRIT 41 % (35-52); HEMOGLOBIN 14.2 g/dL (11.5-16.0); LYMPHOCYTES # (AUTO) 2.7 10^3/uL (1.0-4.0); LYMPHOCYTES % (AUTO) 28 % (12-44); MEAN CORPUSCULAR HEMOGLOBIN 30 pg (25-34); MEAN CORPUSCULAR HGB CONC 35 g/dL (32-36); MEAN CORPUSCULAR VOLUME 86 fL (80-99); MONOCYTES # (AUTO) 0.5 10^3/uL (0.0-1.0); MONOCYTES % (AUTO) 6 % (0-12); NEUTROPHILS % (AUTO) 64 % (42-75); PLATELET COUNT 202 10^3/uL (130-400); WHITE BLOOD COUNT 9.5 10^3/uL (4.3-11.0)
[2022-08-22 23:39] LABS: CALCIUM 8.4 MG/DL (8.5-10.1); CREATININE SERUM 0.5 MG/DL (0.60-1.30); MAGNESIUM 1.9 MG/DL (1.6-2.4); POTASSIUM 4.1 MMOL/L (3.6-5.0)
[2022-08-22 23:40] LABS: ALBUMIN 4.3 GM/DL (3.2-4.5); BILIRUBIN,TOTAL 0.2 MG/DL (0.1-1.0)
[2022-08-22] MEDS ORDERED: NALO25TA PO (23:56)
[2022-08-22] MEDS ORDERED: IPR14IN (23:56)
[2022-08-22] MEDS ORDERED: LEVO25TA5 PO (23:56)
[2022-08-22] MEDS ORDERED: CARI4.5C PO (23:56)
[2022-08-22] MEDS ORDERED: GBPN600T PO (23:56)
[2022-08-23] MEDS ORDERED: CYCL10TA25 PO (00:07)
[2022-08-23] MEDS ORDERED: METF-397 PO (00:07)
[2022-08-23 00:10] VITALS: BP 136/105
== END 2022-08-23 00:10 | disposition home or self-care (01) ==
LOC: EDUNIT# 22:17 → ER FS 22:21
DX: S56.911A Strain of unspecified muscles, fascia and tendons at forearm level, right arm, initial encounter (principal); S56.912A Strain of unspecified muscles, fascia and tendons at forearm level, left arm, initial encounter; M62.831 Muscle spasm of calf; E11.65 Type 2 diabetes mellitus with hyperglycemia; F31.9 Bipolar disorder, unspecified; F17.210 Nicotine dependence, cigarettes, uncomplicated; Z79.84 Long term (current) use of oral hypoglycemic drugs; X58.XXXA Exposure to other specified factors, initial encounter
CPT/HCPCS: 36415; 80053; 81000; 83735; 85025

== ENCOUNTER 2022-10-30 09:07 | Emergency (ER) | payer MEDICARE, MEDICAID ==
[~2022-10-30] VITALS: Ht 170 cm; Wt 82.0 kg
[~2022-10-30 09:07] MED LIST changes: +CARI4.5C PO; +CYCL10TA25 PO; +GBPN600T PO; +IPR14IN; +LEVO25TA5 PO; +METF-397 PO; +NALO25TA PO
[2022-10-30] MEDS ORDERED: ONDANSETRON 4 MG/2 ML (SDV) Z0FRAN IVP STA (09:22)
[2022-10-30] MEDS ORDERED: NS IV 1000 ML 1,000 ML IV STA (09:22)
--- NOTE | 2022-10-30 09:24 | ED General ---
General Stated Complaint: BLOOD SUGAR OVER 600, VISION IS FUNNY Source of Information: Patient History of Present Illness Date Seen by Provider: Oct 30, 2022 Time Seen by Provider: 09:09 Initial Comments 46-year-old female presenting with complaints of blurred vision and high readings for glucometer at home. She states she had eaten a lot of [place] yesterday and then this morning when she checked her blood sugar just prior to coming to the emergency department there was too high to read. She became sca red and rushed here to the emergency department. She has not had any vomiting but did have some mild nausea. She denies any pain with urination, diarrhea, vomiting, chest pain, shortness of breath, sore throat, fever, chills. She has longstanding type 2 diabetes and is taking metformin but states her sugars run in the 200-300 range all the time. She states her primary care physician, Dr. Annel Blevins, is trying to get her on Ozempic but her insurance company has been fighting that. She did not bring her glucometer with her but she was concerned that she Timing/Duration: 1-3 Hours Severity: Severe Associated Systoms: No Chest Pain, No Cough, No Diaphoresis, No Fever/Chills, No Headaches, No Loss of Appetite, No Malaise; Nausea/Vomiting (nausea but no emesis); No Rash, No Seizure, No Shortness of Air, No Syncope, No Weakness Allergies and Home Medications Allergies Coded Allergies: podofilox (Verified Allergy, Unknown, 10/10/15) Patient Home Medication List Home Medication List Reviewed: Yes Blood-Glucose Meter (Blood Glucose Meter) 1 Each Each, EACH , (DME) Prescribed by: POLINA WINSLOW on 10/30/22 0945 Carbamazepine (Tegretol) 200 Mg Tablet, 300 MG PO TID, (Reported) Entered as Reported by: RAZ CORDON on 10/10/15 184 Cariprazine Hydrochloride (Vraylar) 4.5 Mg Capsule, 4.5 MG PO DAILY, (Reported) Entered as Reported by: VERN LI on 08/22/22 2356 Cyclobenzaprine HCl (Cyclobenzaprine HCl) 10 Mg Tablet, 10 MG PO BID PRN for MUSCLE SPASMS Prescribed by: POLINA WINSLOW on 08/23/22 0007 Duloxetine HCl (Cymbalta) 60 Mg Capsule.dr, 60 MG PO BID, (Reported) Entered as Reported by: RAZ CORDON on 10/10/15 1842 Gabapentin (Gabapentin) 600 Mg Tablet, 600 MG PO TID, (Reported) Entered as Reported by: VERN LI on 08/22/222355 Ipratropium [place] (Atrovent Hfa) 17 Mcg/Actuation Aers, (Reported) Entered as Reported by: VERN LI on 08/22/222355 Lancets/Blood Glucose Strips (Lancet 30G-Glucose Test Strip) 30 Gauge Combo..pkg, EACH ACHS PRN for HYPERGLYCEMIA, (DME) Prescribed by: POLINA WINSLOW on 10/30/22 0945 Levothyroxine Sodium (Levothyroxine Sodium) 25 Mcg Tablet, 25 MCG PO DAILY, (Reported) Entered as Reported by: VERN LI on 08/22/222355 Metformin HCl (Metformin HCl) 500 Mg Tablet, 500 MG PO BID Prescribed by: POLINA WINSLOW on 08/23/22 0007 Naloxegol Oxalate (Movantik) 25 Mg Tablet, 25 MG PO DAILY, (Reported) Entered as Reported by: VERN LI on 08/22/222355 Review of Systems Review of Systems Constitutional: No chills, No fever EENTM: nose congestion (reports cold symptoms for last 2-3 weeks) Respiratory: no symptoms reported Cardiovascular: no symptoms reported Gastrointestinal: see HPI Genitourinary: No dysuria Musculoskeletal: no symptoms reported Skin: No rash Psychiatric/Neurological: Denies Headache Past Gmagxhv-Ajofvb-Scwfwu Hx Patient Social History Substance use?: No (History of Methamphetamine abuse) Immunizations Up To Date Tetanus Booster (TDap): Unknown First/Initial COVID19 Vaccinat: Date ? Second COVID19 Vaccination Aneudy: Date ? Third COVID19 Vaccination Date: Date ? Seasonal Allergies Seasonal Allergies: No Past Medical History Surgery/Hospitalization HX: Narcolepsy, Bipolar, Diabetes Type II, Hysterectomy, Cholecystectomy Surgeries: Yes Abdominal, Breast, Gallbladder, Hysterectomy Respiratory: No Cardiac: Yes Hypertension, Irregular Heartbeat, Palpitations Neurological: No Reproductive Disorders: Yes Female Reproductive Disorders: Endometriosis Genitourinary: No Gastrointestinal: No Musculoskeletal: No Endocrine: Yes Hypothyroidsim, Diabetes, Non-Insulin dep HEENT: No Cancer: No Psychosocial: Yes Anxiety, Bipolar Integumentary: No Blood Disorders: No Physical Exam Vital Signs Vital Signs - First Documented 10/30/22 09:33 Temp 35.9 Pulse 89 Resp 18 B/P (MAP) 165/91 (115) Pulse Ox 99 O2 Delivery Room Air Capillary Refill : Height, Weight, BMI Height: 5'6" Weight: 170lbs. oz. 77.633819cd; 28.00 BMI Method: General Appearance: No Apparent Distress, Anxious, Obese HEENT: PERRL/EOMI, Pharynx Normal, Moist Mucous Membranes Neck: Full Range of Motion, Normal Inspection, Non Tender, Supple Respiratory: Chest Non Tender, Lungs Clear, Normal Breath Sounds, No Accessory Muscle Use, No Respiratory Distress Cardiovascular: Regular Rate, Rhythm, Normal Peripheral Pulses Gastrointestinal: Normal Bowel Sounds, No Pulsatile Mass, Non Tender, Soft Extremity: Normal Capillary Refill, Normal Inspection, No Pedal Edema Neurologic/Psychiatric: Alert, Oriented x3, assistant hvac mechanic II-XII Norm as Tested Skin: Normal Color, Warm/Dry Progress/Results/Core Measures Suspected Sepsis SIRS Temperature: Pulse: Respiratory Rate: Laboratory Tests 10/30/22 09:19: White Blood Count 8.6 Blood Pressure / Mean: Laboratory Tests 10/30/22 09:19: Creatinine 0.58L, Platelet Count 220, Total Bilirubin 0.3 Results/Orders Lab Results Laboratory Tests Test 10/30/22 09:18 10/30/22 09:19 Range/Units Glucometer 194 H 70-110 MG/DL White Blood Count 8.6 4.3-11.0 10^3/uL Red Blood Count 4.37 3.80-5.11 10^6/uL Hemoglobin 13.7 11.5-16.0 g/dL Hematocrit 40 35-52 % Mean Corpuscular Volume 92 80-99 fL Mean Corpuscular Hemoglobin 31 25-34 pg Mean Corpuscular Hemoglobin Concent 34 32-36 g/dL Red Cell Distribution Width 13.8 10.0-14.5 % Platelet Count 220 130-400 10^3/uL Mean Platelet Volume 10.8 9.0-12.2 fL Immature Granulocyte % (Auto) 0 % Neutrophils (%) (Auto) 72 42-75 % Lymphocytes (%) (Auto) 22 12-44 % Monocytes (%) (Auto) 4 0-12 % Eosinophils (%) (Auto) 2 0-10 % Basophils (%) (Auto) 1 0-10 % Neutrophils # (Auto) 6.2 1.8-7.8 10^3/uL Lymphocytes # (Auto) 1.9 1.0-4.0 10^3/uL Monocytes # (Auto) 0.4 0.0-1.0 10^3/uL Eosinophils # (Auto) 0.1 0.0-0.3 10^3/uL Basophils # (Auto) 0.0 0.0-0.1 10^3/uL Immature Granulocyte # (Auto) 0.0 0.0-0.1 10^3/uL Urine Color YELLOW Urine Clarity CLEAR Urine pH 5.5 5-9 Urine Specific [place] 1.015 L 1.016-1.022 Urine Protein NEGATIVE NEGATIVE Urine Glucose (UA) NEGATIVE NEGATIVE Urine Ketones NEGATIVE NEGATIVE Urine Nitrite NEGATIVE NEGATIVE Urine Bilirubin NEGATIVE NEGATIVE Urine Urobilinogen 0.2 < = 1.0 MG/DL Urine Leukocyte Esterase NEGATIVE NEGATIVE Urine RBC (Auto) NEGATIVE NEGATIVE Urine RBC NONE /HPF Urine WBC 2-5 /HPF Urine Squamous Epithelial Cells 10-25 H /HPF Urine Crystals NONE /LPF Urine Bacteria FEW H /HPF Urine Casts NONE /LPF Urine Mucus NEGATIVE /LPF Urine Culture Indicated YES Sodium Level 136 135-145 MMOL/L Potassium Level 4.6 3.6-5.0 MMOL/L Chloride Level 100 98-107 MMOL/L Carbon Dioxide Level 21 21-32 MMOL/L Anion Gap 15 H 5-14 MMOL/L Blood Urea Nitrogen 11 7-18 MG/DL Creatinine 0.58 L 0.60-1.30 MG/DL Estimat Glomerular Filtration Rate 112 BUN/Creatinine Ratio 19 Glucose Level 196 H 70-105 MG/DL Calcium Level 8.8 8.5-10.1 MG/DL Corrected Calcium 8.4 L 8.5-10.1 MG/DL Total Bilirubin 0.3 0.1-1.0 MG/DL Aspartate Amino Transf (AST/SGOT) 22 5-34 U/L Alanine Aminotransferase (ALT/SGPT) 19 0-55 U/L Alkaline Phosphatase 148 H 40-136 U/L Total Protein 7.3 6.4-8.2 GM/DL Albumin 4.5 3.2-4.5 GM/DL Lipase 38 8-78 U/L My Orders Orders - POLINA WINSLOW MD Accucheck Stat ONCE (10/30/22 09:11) Ua Culture If Indicated (10/30/22 09:11) Comprehensive Metabolic Panel (10/30/22 09:11) Lipase (10/30/22 09:11) Ed Iv/Invasive Line Start (10/30/22 09:11) Cbc With Automated Diff (10/30/22 09:11) Hemoglobin A1c (10/30/22 09:24) Ondansetron Oral Dissolve Tab (Zofran (10/30/22 09:26) Urine Culture (10/30/22 09:19) Vital Signs/I&O 10/30/22 09:33 Temp 35.9 Pulse 89 Resp 18 B/P (MAP) 165/91 (115) Pulse Ox 99 O2 Delivery Room Air Capillary Refill : Progress Note #1: Progress Note Potential diagnosis of diabetic ketoacidosis, hyperglycemia, hyperosmolar hyperglycemia, urinary tract infection, sepsis, noncompliance. Obtained Accu-Chek on arrival to the emergency department and it was 194. Patient did not have her machine with her to test alongside our machine. She states that she feels like she needs a new machine but has not been able to get her primary care provider to call it in for her. She was concerned that her machine was not reading correctly now. She was agreeable to having blood drawn and sent labs looking at her complete blood count, comprehensive metabolic profile, lipase. Initially a urine drug screen and alcohol level was ordered but since patient was not over 500 for her glucose like she had thought we will cancel those tests. Obtain a urinalysis to look at hydration as well as looking for proteinuria and UTI and glucosuria. As patient has a history of methamphetamine abuse she has a lot of scar tissue with her veins so unable to obtain IV access with first 2 attempts. Will hold off on further IV attempts until we can get her labs back. If she is truly high on her glucose and not just at 194 like our glucometer shows then we can try further attempts for IV access. Give Zofran 4 mg ODT to help with nausea and have her drink water for hydration. Initially had ordered 1 L NS IVF bolus with Zofran 4 mg IV but without obtaining IV access we are unable to administer these medicines by IV route so change to drinking fluids and ODT zofran. Progress Note #2: Progress Note Complete blood count came back showing no elevated white blood cell count for infection. She had comprehensive metabolic profile that confirmed her glucose was 196. This matches up with her 194 that was as an Accu-Chek. Her urinalysis did show a few bacteria but there is no nitrites or leukocyte esterase and she was not having UTI symptoms so we will give her an antibiotic for now. Await culture results and see if its bacterial infection or if it is contamination from the skin. Encouraged to check with clinic about getting a new glucometer and test strips. I sent a prescription to [facility] in case they were able to use my prescription to get her new machine and test strips. Encouraged to drink plenty of fluids and stay well-hydrated. Avoid excessive amounts of carbohydrates and sugars. Departure Impression Primary Impression: Hyperglycemia due to type 2 diabetes mellitus Qualified Codes: E11.65 - Type 2 diabetes mellitus with hyperglycemia Disposition: HOME, SELF-CARE Condition: Stable Departure-Patient Inst. Decision time for Depature: 09:47 Referrals: ANNEL BLEVINS MD (PCP/Family) Primary Care Physician Patient Instructions: How to Prevent High Blood Sugar Emergencies in Diabetes, High Blood Sugar, Adult ED, Diabetes and Diet Add. Discharge Instructions: Continue to watch your diet and try to avoid excessive amounts of carbohydrates and sugars. Continue to work with your primary care doctor and clinic to address diabetes control and testing. Continue on your regular medicines. Try to get a new glucometer and test strips. Scripts Lancets/Blood Glucose Strips (Lancet 30G-Glucose Test Strip) 30 Gauge Combo..pkg EACH ACHS PRN for HYPERGLYCEMIA, #1 0 Refills Check sugar before meals and at bedtime. 1 month supply Prov: POLINA WINSLOW MD 10/30/22 Blood-Glucose Meter (Blood Glucose Meter) 1 Each Each EACH for diabetes, #1 0 Refills Check glucose before meals and at bedtime. Prov: POLINA WINSLOW MD 10/30/22 POLINA WINSLOW MD Oct 30, 2022 09:24
[2022-10-30 09:25] LABS: BASOPHILS % (AUTO) 1 % (0-10); EOSINOPHILS # (AUTO) 0.1 10^3/uL (0.0-0.3); EOSINOPHILS % (AUTO) 2 % (0-10); HEMATOCRIT 40 % (35-52); HEMOGLOBIN 13.7 g/dL (11.5-16.0); LYMPHOCYTES # (AUTO) 1.9 10^3/uL (1.0-4.0); LYMPHOCYTES % (AUTO) 22 % (12-44); MEAN CORPUSCULAR HEMOGLOBIN 31 pg (25-34); MEAN CORPUSCULAR HGB CONC 34 g/dL (32-36); MEAN CORPUSCULAR VOLUME 92 fL (80-99); MEAN PLATELET VOLUME 10.8 fL (9.0-12.2); MONOCYTES # (AUTO) 0.4 10^3/uL (0.0-1.0); MONOCYTES % (AUTO) 4 % (0-12); NEUTROPHILS # (AUTO) 6.2 10^3/uL (1.8-7.8); NEUTROPHILS % (AUTO) 72 % (42-75); PLATELET COUNT 220 10^3/uL (130-400); WHITE BLOOD COUNT 8.6 10^3/uL (4.3-11.0)
[2022-10-30] MEDS ORDERED: ONDANSETRON 4 MG (ZOFRAN) ORAL DISSOLVE TAB PO STA (09:26)
[2022-10-30 09:30] LABS: BILIRUBIN,URINE NEGATIVE (NEGATIVE); CLARITY,URINE CLEAR; COLOR,URINE YELLOW; GLUCOSE, URINE (UA) NEGATIVE (NEGATIVE); KETONES,URINE NEGATIVE (NEGATIVE); LEUKOCYTE ESTERASE ,URINE NEGATIVE (NEGATIVE); NITRITE,URINE NEGATIVE (NEGATIVE); PH,URINE 5.5 (5-9); PROTEIN,URINE NEGATIVE (NEGATIVE)
[2022-10-30 09:33] VITALS: BP 165/91
[2022-10-30 09:34] LABS: BACTERIA,URINE FEW /HPF
[2022-10-30 09:41] LABS: ALBUMIN 4.5 GM/DL (3.2-4.5); BILIRUBIN,TOTAL 0.3 MG/DL (0.1-1.0); CALCIUM 8.8 MG/DL (8.5-10.1); CREATININE SERUM 0.58 MG/DL (0.60-1.30); POTASSIUM 4.6 MMOL/L (3.6-5.0); TOTAL PROTEIN 7.3 GM/DL (6.4-8.2)
[2022-10-30] MEDS ORDERED: LANC1COM6 MC (09:45)
[2022-10-30] MEDS ORDERED: BLOO1EAC87 MC (09:45)
== END 2022-10-30 09:50 | disposition home or self-care (01) ==
LOC: EDUNIT# 09:07 → ER FS 09:09
DX: E11.65 Type 2 diabetes mellitus with hyperglycemia (principal); R82.71 Bacteriuria; Z79.84 Long term (current) use of oral hypoglycemic drugs
CPT/HCPCS: 36415; 80053; 81000; 82947; 83036; 83690; 85025; 87088

== ENCOUNTER 2023-07-05 22:16 | Emergency (ER) | payer MEDICARE, MEDICAID ==
[~2023-07-05] VITALS: Ht 170 cm; Wt 76.1 kg
[2023-07-05 22:16] VITALS: BP 150/73
[~2023-07-05 22:16] MED LIST changes: +BLOO1EAC87 MC; +LANC1COM6 MC
--- NOTE | 2023-07-05 22:39 | ED Chest Pain ---
General Stated Complaint: CHEST PAIN,HEART "SKIPPING BEATS" Source: patient Exam Limitations: no limitations History of Present Illness Date Seen by Provider: Jul 05, 2023 Time Seen by Provider: 22:20 Initial Comments 47-year-old female with past medical history of diabetes and hypothyroidism coming in due to chest pain. The pain started over 4 hours ago, constant, right side of her chest, pressure-like discomfort. She has had pain like this before 1 time before in her life, but nothing really came of it. Denies any previous history of DVT or PE, no lower extremity swelling or pain, no hemoptysis, no rec ent surgery, no hormone use, no shortness of breath, abdominal pain, nausea, vomiting, diarrhea, weakness, numbness, or any other concerns. She has not had any aspirin today. Allergies and Home Medications Allergies Coded Allergies: podofilox (Verified Allergy, Unknown, 10/10/15) Patient Home Medication List Home Medication List Reviewed: Yes Blood-Glucose Meter (Blood Glucose Meter) 1 Each Each, EACH , (DME) Prescribed by: POLINA WINSLOW on 10/30/22 0945 Carbamazepine (Tegretol) 200 Mg Tablet, 300 MG PO TID, (Reported) Entered as Reported by: RAZ CORDON on 10/10/15 1842 Cariprazine Hydrochloride (Vraylar) 4.5 Mg Capsule, 4.5 MG PO DAILY, (Reported) Entered as Reported by: VERN LI on 08/22/222355 Cyclobenzaprine HCl (Cyclobenzaprine HCl) 10 Mg Tablet, 10 MG PO BID PRN for MUSCLE SPASMS Prescribed by: POLIAN WINSLOW on 08/23/22 0007 Duloxetine HCl (Cymbalta) 60 Mg Capsule.dr, 60 MG PO BID, (Reported) Entered as Reported by: RAZ CORDON on 10/10/15 1842 Gabapentin (Gabapentin) 600 Mg Tablet, 600 MG PO TID, (Reported) Entered as Reported by: VERN LI on 08/22/222355 Ipratropium Wray (Atrovent Hfa) 17 Mcg/Actuation Aers, (Reported) Entered as Reported by: VERN LI on 08/22/222355 Lancets/Blood Glucose Strips (Lancet 30G-Glucose Test Strip) 30 Gauge Combo..pkg, EACH ACHS PRN for HYPERGLYCEMIA, (DME) Prescribed by: POLINA Huffman ENYART on 10/30/22 0945 Levothyroxine Sodium (Levothyroxine Sodium) 25 Mcg Tablet, 25 MCG PO DAILY, (Reported) Entered as Reported by: VERN LI on 08/22/22 235 Metformin HCl (Metformin HCl) 500 Mg Tablet, 500 MG PO BID Prescribed by: POLINA Huffman ENYART on 08/23/22 0007 Naloxegol Oxalate (Movantik) 25 Mg Tablet, 25 MG PO DAILY, (Reported) Entered as Reported by: VERN LI on 08/22/22 235 Review of Systems Review of Systems Constitutional: No fever EENTM: No Symptoms Reported Respiratory: No Symptoms Reported Cardiovascular: See HPI Gastrointestinal: No Symptoms Reported Genitourinary: No Symptoms Reported Musculoskeletal: no symptoms reported Skin: no symptoms reported Psychiatric/Neurological: No Symptoms Reported Endocrine: No Symptoms Reported Hematologic/Lymphatic: No Symptoms Reported Past Jqlprha-[id number]-Lqpumv Hx Patient Social History Tobacco Use?: Yes Tobacco type used: Cigarettes Immunizations Up To Date Tetanus Booster (TDap): Unknown First/Initial COVID19 Vaccinat: Date ? Second COVID19 Vaccination Aneudy: Date ? Third COVID19 Vaccination Date: Date ? Seasonal Allergies Seasonal Allergies: No Past Medical History Surgery/Hospitalization HX: Narcolepsy, Bipolar, Diabetes Type II, Hysterectomy, Cholecystectomy Surgeries: Yes Abdominal, Breast, Gallbladder, Hysterectomy Respiratory: No Cardiac: Yes Hypertension, Irregular Heartbeat, Palpitations Neurological: No Reproductive Disorders: Yes Female Reproductive Disorders: Endometriosis Genitourinary: No Gastrointestinal: No Musculoskeletal: No Endocrine: Yes Hypothyroidsim, Diabetes, Non-Insulin dep HEENT: No Cancer: No Psychosocial: Yes Anxiety, Bipolar Integumentary: No Blood Disorders: No Physical Exam Vital Signs Vital Signs - First Documented 07/05/23 22:16 Temp 36.9 Pulse 88 Resp 18 B/P (MAP) 150/73 (98) Pulse Ox 94 O2 Delivery Room Air Capillary Refill : Height, Weight, BMI Height: 5'6" Weight: 170lbs. oz. 77.888298du; 28.00 BMI Method: General Appearance: No Apparent Distress, WD/WN HEENT: PERRL/EOMI, Normal ENT Inspection, Pharynx Normal Neck: Full Range of Motion, Normal Inspection, Non Tender, Supple Respiratory: Chest Non Tender, Lungs Clear, Normal Breath Sounds, No Accessory Muscle Use, No Respiratory Distress Cardiovascular: Regular Rate, Rhythm, No Edema, Normal Peripheral Pulses Gastrointestinal: Normal Bowel Sounds, Non Tender, Soft; No Distended, No Guarding Extremity: Normal Capillary Refill, Normal Inspection, Normal Range of Motion, Non Tender, No Calf Tenderness, No Pedal Edema Neurologic/Psychiatric: Alert, No Motor/Sensory Deficits, Normal Mood/Affect Skin: Normal Color, Warm/Dry Progress/Results/Core Measures Results/Orders Lab Results Laboratory Tests Test 07/05/23 22:30 Range/Units White Blood Count 11.0 4.3-11.0 10^3/uL Red Blood Count 4.64 3.80-5.11 10^6/uL Hemoglobin 14.4 11.5-16.0 g/dL Hematocrit 42 35-52 % Mean Corpuscular Volume 91 80-99 fL Mean Corpuscular Hemoglobin 31 25-34 pg Mean Corpuscular Hemoglobin Concent 34 32-36 g/dL Red Cell Distribution Width 13.0 10.0-14.5 % Platelet Count 275 130-400 10^3/uL Mean Platelet Volume 9.1 9.0-12.2 fL Immature Granulocyte % (Auto) 0 % Neutrophils (%) (Auto) 57 42-75 % Lymphocytes (%) (Auto) 36 12-44 % Monocytes (%) (Auto) 5 0-12 % Eosinophils (%) (Auto) 2 0-10 % Basophils (%) (Auto) 1 0-10 % Neutrophils # (Auto) 6.3 1.8-7.8 10^3/uL Lymphocytes # (Auto) 3.9 1.0-4.0 10^3/uL Monocytes # (Auto) 0.6 0.0-1.0 10^3/uL Eosinophils # (Auto) 0.2 0.0-0.3 10^3/uL Basophils # (Auto) 0.1 0.0-0.1 10^3/uL Immature Granulocyte # (Auto) 0.0 0.0-0.1 10^3/uL Prothrombin Time 12.4 12.2-14.7 SEC INR Comment 0.9 0.8-1.4 Activated Partial Thromboplast Time 24 24-35 SEC Sodium Level 132 L 135-145 MMOL/L Potassium Level 3.9 3.6-5.0 MMOL/L Chloride Level 96 L 98-107 MMOL/L Carbon Dioxide Level 26 21-32 MMOL/L Anion Gap 10 5-14 MMOL/L Blood Urea Nitrogen 7 7-18 MG/DL Creatinine 0.63 0.60-1.30 MG/DL Estimat Glomerular Filtration Rate 109 BUN/Creatinine Ratio 11 Glucose Level 108 H 70-105 MG/DL Calcium Level 8.3 L 8.5-10.1 MG/DL Corrected Calcium 8.1 L 8.5-10.1 MG/DL Magnesium Level 1.9 1.6-2.4 MG/DL Total Bilirubin 0.2 0.1-1.0 MG/DL Aspartate Amino Transf (AST/SGOT) 11 5-34 U/L Alanine Aminotransferase (ALT/SGPT) 11 0-55 U/L Alkaline Phosphatase 140 H 40-136 U/L Troponin I < 0.30 <0.30 NG/ML Pro-B-Type Natriuretic Peptide 52.6 <125.0 PG/ML Total Protein 6.9 6.4-8.2 GM/DL Albumin 4.2 3.2-4.5 GM/DL Lipase 35 8-78 U/L My Orders Orders - LUISA ROSA MD Cbc And Automated Diff (07/05/23 22:32) Magnesium (07/05/23 22:32) Chest 1 View Ap/Pa Only (07/05/23 22:32) Ekg Tracing (07/05/23 22:32) Comprehensive Metabolic Panel (07/05/23 22:32) Protime With Inr (07/05/23 22:32) Partial Thromboplastin Time (07/05/23 22:32) O2 (07/05/23 22:32) Monitor-Rhythm Ecg Trace Only (07/05/23 22:32) Aspirin Chewable Tablet (Aspirin Chewabl (07/05/23 22:45) Lipase (07/05/23 22:32) Troponin I Fs (07/05/23 22:32) Probnp Fs (07/05/23 22:32) Medications Given in ED Current Medications Medications Dose Ordered Sig/Lisy Route Start Time Stop Time Status Last Admin Dose Admin Aspirin 324 mg ONCE ONCE PO 07/05/23 22:45 11/14/23 22:46 DC 07/05/23 22:36 324 MG Vital Signs/I&O 07/05/23 22:16 Temp 36.9 Pulse 88 Resp 18 B/P (MAP) 150/73 (98) Pulse Ox 94 O2 Delivery Room Air Progress Progress Note : Progress Note 47-year-old female with above history coming in due to chest pain. ABCs were intact and vitals were stable on presentation. Physical exam reassuring including no clinical signs of a DVT on exam. EKG ordered and interpreted by me showing no acute ischemic changes. Chest x-ray ordered and interpreted by me showing no pneumothorax, normal cardiac silhouette, no obvious pneumonia. Labs were obtained and were significant for negative troponin, normal creatinine, normal white blood cell count, and normal BNP. Especially given she has had 4 hours of constant pain, negative troponin essentially rules out ACS. She was given aspirin on arrival. She is low risk for PE per Jay criteria and is PERC negative. Overall, well-appearing, although she felt like she is "skipping beats", she is sinus rhythm on EKG and we placed her on the veterinary receptionist and monitor her for some time, see any significant abnormality other than may be the very occasional PAC. I believe she is otherwise stable for discharge with outpatient follow-up. She was sent home with strict return precautions. Initial ECG Impression Date: Jul 05, 2023 Initial ECG Impression Time: 22:20 Initial ECG Rate: 85 Initial ECG Rhythm: Normal Sinus Comment Narrow QRS, normal axis, no significant ST changes or T wave abnormalities Diagnostic Imaging Diagonstic Imaging: Xray (chest) Departure Impression Primary Impression: Chest pain Qualified Codes: R07.82 - Intercostal pain Disposition: 01 HOME, SELF-CARE Condition: Stable Departure-Patient Inst. Decision time for Depature: 23:20 Referrals: ANNEL BLEVINS MD (PCP/Family) Primary Care Physician PAUL VAIL MD Patient Instructions: Chest Pain Add. Discharge Instructions: Fortunately were not seeing any life-threatening causes of chest pain at this time. We did not see any evidence of A-fib while you are on a monitor or with your EKG. It still possible you could be and at other times when you are not on the monitor. We recommend following up with a nut tightener, Dr. Vail's number is in this paperwork. You can discuss a veterinary receptionist for a longer period of time as well to see if you are going to A-fib. Work/School Note: Work Release Form Date Seen in the Emergency Department: Jul 05, 2023 Return to Work: Jul 07, 2023 Restrictions: No Restrictions LUISA ROSA MD Jul 05, 2023 22:39
[2023-07-05 22:41] LABS: BASOPHILS # (AUTO) 0.1 10^3/uL (0.0-0.1); BASOPHILS % (AUTO) 1 % (0-10); EOSINOPHILS # (AUTO) 0.2 10^3/uL (0.0-0.3); EOSINOPHILS % (AUTO) 2 % (0-10); HEMATOCRIT 42 % (35-52); HEMOGLOBIN 14.4 g/dL (11.5-16.0); LYMPHOCYTES # (AUTO) 3.9 10^3/uL (1.0-4.0); LYMPHOCYTES % (AUTO) 36 % (12-44); MEAN CORPUSCULAR HEMOGLOBIN 31 pg (25-34); MEAN CORPUSCULAR HGB CONC 34 g/dL (32-36); MEAN CORPUSCULAR VOLUME 91 fL (80-99); MEAN PLATELET VOLUME 9.1 fL (9.0-12.2); MONOCYTES # (AUTO) 0.6 10^3/uL (0.0-1.0); MONOCYTES % (AUTO) 5 % (0-12); NEUTROPHILS # (AUTO) 6.3 10^3/uL (1.8-7.8); NEUTROPHILS % (AUTO) 57 % (42-75); PLATELET COUNT 275 10^3/uL (130-400)
[2023-07-05] MEDS ORDERED: ASPIRIN 81 MG CHEWABLE TABLET PO ONE (22:45)
[2023-07-05 23:00] LABS: POTASSIUM 3.9 MMOL/L (3.6-5.0)
[2023-07-05 23:02] LABS: INR 0.9 (0.8-1.4); PROTHROMBIN TIME PATIENT 12.4 SEC (12.2-14.7)
[2023-07-05 23:04] LABS: BUN/CREATININE RATIO 11; CALCIUM 8.3 MG/DL (8.5-10.1); CARBON DIOXIDE 26 MMOL/L (21-32); CHLORIDE 96 MMOL/L (98-107); CREATININE SERUM 0.63 MG/DL (0.60-1.30); GFR ESTIMATED 109; GLUCOSE 108 MG/DL (70-105); SODIUM 132 MMOL/L (135-145)
[2023-07-05 23:05] LABS: ALANINE AMINOTRANSFERASE 11 U/L (0-55); ALBUMIN 4.2 GM/DL (3.2-4.5); ALKALINE PHOSPHATASE 140 U/L (40-136); BILIRUBIN,TOTAL 0.2 MG/DL (0.1-1.0); LIPASE 35 U/L (8-78); MAGNESIUM 1.9 MG/DL (1.6-2.4); TOTAL PROTEIN 6.9 GM/DL (6.4-8.2)
--- NOTE | 2023-07-06 06:10 | Diagnostic Imaging Report ---
EXAMINATION: Chest 1 view HISTORY: chest pain COMPARISON: 03/03/2020 FINDINGS: Heart size and pulmonary vasculature are normal. The lungs are clear without consolidation, pleural effusion, or pneumothorax. The osseous structures are intact. IMPRESSION: 1. No acute radiographic abnormality in the chest. Dictated by: Dictated on workstation # [id number]
== END 2023-07-05 23:20 | disposition home or self-care (01) ==
LOC: EDUNIT# 22:16 → ER FS 22:17
DX: R07.89 Other chest pain (principal); F17.210 Nicotine dependence, cigarettes, uncomplicated
CPT/HCPCS: 36415; 71045; 80053; 83690; 83735; 83880; 84484; 85025; 85610; 85730; 93005; 93041